=== PATIENT | female | born 1970 | race Caucasian/White ===

== ENCOUNTER → 2016-09-12 | Outpatient (CLI) | payer BC, OTHER | LOC: MAMO 12-02 08:20 | DX: Z12.31 Encounter for screening mammogram for malignant neoplasm of breast (principal); Z90.710 Acquired absence of both cervix and uterus | CPT/HCPCS: G0202 ==

== ENCOUNTER → 2020-08-27 | Outpatient (CLI) | payer OTHER ==
[~2020-08-27] MED LIST: AIMOVIG AU140 MG/1 M INJ; AUGMENTIN 875-1 EACH PO; BENTYL 10MG CAP10 MG PO; CARAFATE1 GM/10 ML PO; CEFUROXIME500 MG PO; COQ-10100 MG PO; DIFLUCAN 100 M100 MG PO; GLUCOPHAGE500 MG PO; HYDROCODON-ACE1 EAC2 PO; ISOSORBIDE MONO60 MG PO; LEVOTHYROXINE75 MC1 PO; LEXAPRO20 MG PO; LISINOPRIL2.5 MG PO; MOBIC7.5 MG PO; NEURONTIN800 MG PO; NITROSTAT0.4 MG SL; PREDNISONE20 MG PO; PROTONIX40 MG PO; PROVENTIL HFA6.7 GM INH; PYRIDIUM200 MG PO; REGLAN10 MG PO; ST. JOSEPH ASPI81 MG PO; TOPROL XL200 MG PO; ULTRAM50 MG PO; VITAMIN D325 MC6 PO; WELLBUTRIN XL150 MG PO
[2020-08-27 14:12] LABS: BUN/CREATININE RATIO 19 (0-10)
== END ==
LOC: OPSV2 12:00
PROVIDERS: Orthopaedic Surgery
DX: Z01.818 Encounter for other preprocedural examination (principal); G56.02 Carpal tunnel syndrome, left upper limb
CPT/HCPCS: 36415; 80048; 83036; 93005

== ENCOUNTER → 2020-09-03 | Day surgery (SDC) | payer OTHER | END | disposition home or self-care (01) | LOC: OR 07:15 | DX: G56.02 Carpal tunnel syndrome, left upper limb (principal); E78.5 Hyperlipidemia, unspecified; I10 Essential (primary) hypertension; K21.9 Gastro-esophageal reflux disease without esophagitis; F41.9 Anxiety disorder, unspecified; E11.9 Type 2 diabetes mellitus without complications; M79.7 Fibromyalgia; K58.9 Irritable bowel syndrome, unspecified; M19.90 Unspecified osteoarthritis, unspecified site; M62.82 Rhabdomyolysis; E03.9 Hypothyroidism, unspecified; Z82.49 Family history of ischemic heart disease and other diseases of the circulatory system; Z83.3 Family history of diabetes mellitus; Z82.3 Family history of stroke; Z88.8 Allergy status to other drugs, medicaments and biological substances; Z79.899 Other long term (current) drug therapy | CPT/HCPCS: 82962; J1100; J2001; J2250; J2405; J2550; J2704; J3010; J7120 ==

== ENCOUNTER 2021-01-25 17:07 | Emergency (ER) | payer OTHER ==
[2021-01-25 20:48] LABS: HEMOGLOBIN 13.7 gm/dl (12.3-15.3); RED BLOOD COUNT 4.82 M/UL (4.00-5.10)
[2021-01-25 21:08] LABS: BUN/CREATININE RATIO 17 (0-10)
== END 2021-01-26 01:10 | disposition home or self-care (01) ==
LOC: ER1 17:07
PROVIDERS: Physician Assistant
DX: R05 Cough (principal); J18.9 Pneumonia, unspecified organism; I10 Essential (primary) hypertension; Z88.8 Allergy status to other drugs, medicaments and biological substances; Z20.822 Contact with and (suspected) exposure to COVID-19
CPT/HCPCS: 71045; 80053; 82550; 82553; 83874; 84484; 85025; 99284; U0002

== ENCOUNTER → 2021-03-24 | Outpatient (CLI) | payer OTHER ==
[~2021-03-24] MED LIST changes: -GLUCOPHAGE500 MG PO; +METFORMIN HCL1000 MG PO; +VITAMIN D21250 MCG PO
[2021-03-24 11:59] LABS: HEMOGLOBIN 12.4 gm/dl (12.3-15.3); RED BLOOD COUNT 4.4 M/UL (4.00-5.10); WHITE BLOOD COUNT 4.7 K/UL (4.5-11.0)
[2021-03-24 12:19] LABS: BUN/CREATININE RATIO 13 (0-10)
== END ==
LOC: OPSV2 03-19 09:00
PROVIDERS: Orthopaedic Surgery
DX: Z01.818 Encounter for other preprocedural examination (principal); M65.311 Trigger thumb, right thumb
CPT/HCPCS: 71046; 80048; 85027; 93005

== ENCOUNTER → 2021-03-30 | Day surgery (SDC) | payer OTHER ==
[~2021-03-30] VITALS: Ht 162.6 cm; Wt 99.3 kg
== END | disposition home or self-care (01) ==
LOC: OR 05:37
DX: M65.311 Trigger thumb, right thumb (principal); M17.12 Unilateral primary osteoarthritis, left knee; I10 Essential (primary) hypertension; E11.9 Type 2 diabetes mellitus without complications; E78.5 Hyperlipidemia, unspecified; F41.9 Anxiety disorder, unspecified; E07.9 Disorder of thyroid, unspecified; Z20.822 Contact with and (suspected) exposure to COVID-19
CPT/HCPCS: 82962; J1100; J1885; J2001; J2250; J2405; J2704; J7030; J7120

== ENCOUNTER → 2022-02-03 | Outpatient (CLI) | payer OTHER | LOC: SLEEP 11:23 | DX: G47.36 Sleep related hypoventilation in conditions classified elsewhere (principal); G47.33 Obstructive sleep apnea (adult) (pediatric); G47.61 Periodic limb movement disorder | CPT/HCPCS: 95810 ==